=== PATIENT | female | born 1970 | race Caucasian/White ===

== ENCOUNTER 2024-06-13 10:25 | Emergency (ER) | payer BC ==
[~2024-06-13] VITALS: Ht 175.3 cm; Wt 97.5 kg
[2024-06-13 10:33] VITALS: PULSE 90; RESP 18; TEMP 98.4; O2SAT 100
[2024-06-13] MEDS ORDERED: SODIUM CHLORIDE 0.9% 1000ML 1,000 ML IV STA (11:26)
[2024-06-13 11:45] LABS: BASOPHILS # (AUTO) 0.1 (0.0-0.1); BASOPHILS % 0.5 % (0.0-1.0); EOSINOPHILS # (AUTO) 0.1 (0.0-0.4); EOSINOPHILS % 1.1 % (0.0-6.0); HEMATOCRIT 41.3 % (34.2-44.1); HEMOGLOBIN 13.1 g/dL (12.0-16.0); LYMPHOCYTES # (AUTO) 2.3 (1.0-3.2); LYMPHOCYTES % 18.1 % (18.0-39.1); MEAN CORPUSCULAR HEMOGLOBIN 28.4 pg (28-32); MEAN CORPUSCULAR HGB CONC 31.7 g/dL (31-35); MEAN CORPUSCULAR VOLUME 89.4 fL (81-99); MONOCYTES # (AUTO) 0.9 (0.2-0.8); MONOCYTES % 6.7 % (4.4-11.3); NEUTROPHILS # (AUTO) 9.3 (2.1-6.9); NEUTROPHILS % 73.1 % (38.7-80.0); PLATELET COUNT 460 x10e3/uL (140-360); RED BLOOD COUNT 4.62 x10e6/uL (3.6-5.1); RED CELL DISTRIBUTION WIDTH 12.5 % (11.7-14.4); WHITE BLOOD COUNT 12.73 x10e3/uL (4.8-10.8)
[2024-06-13 11:51] LABS: INR 0.98; PARTIAL THROMBOPLASTIN TIME 28.5 seconds (23.8-35.5); PROTHROMBIN TIME 13.5 seconds (11.9-14.5)
[2024-06-13 12:01] LABS: ALANINE AMINOTRANSFERASE 66 IU/L (0-55); ALBUMIN 3.3 g/dL (3.5-5.0); ALBUMIN/GLOBULIN RATIO 0.7 (0.8-2.0); ALKALINE PHOSPHATASE 116 IU/L (40-150); ANION GAP 17.9 mmol/L (8-16); BILIRUBIN,TOTAL 1.2 mg/dL (0.2-1.2); BLOOD UREA NITROGEN 13 mg/dL (7-26); BUN/CREATININE RATIO 17 (6-25); CALCIUM 9.4 mg/dL (8.4-10.2); CARBON DIOXIDE 25 mmol/L (22-29); CHLORIDE 94 mmol/L (98-107); CREATININE, SERUM 0.75 mg/dL (0.57-1.11); EST GLOMERULAR FILTRATION RATE 96 ML/MIN (>=60); GLUCOSE 88 mg/dL (74-118); LIPASE 52 U/L (8-78); SODIUM 134 mmol/L (136-145); TOTAL PROTEIN 8.2 g/dL (6.5-8.1)
[2024-06-13 12:05] LABS: POTASSIUM 2.9 mmol/L (3.5-5.1)
[2024-06-13] MEDS ORDERED: DICYCLOMINE HCL20 MG PO (13:03)
[2024-06-13] MEDS ORDERED: PANTOPRAZOLE SO40 MG PO (13:03)
[2024-06-13] MEDS: POTASSIUM CHLORIDE 20 MEQ TAB CR PO ONE (13:11)
== END 2024-06-13 13:33 | disposition home or self-care (01) ==
LOC: ER 10:37
DX: R10.13 Epigastric pain (principal); K80.20 Calculus of gallbladder without cholecystitis without obstruction; E87.6 Hypokalemia
CPT/HCPCS: 36415; 76705; 80053; 83690; 83735; 84702; 85025; 85610; 85730; 99284

== ENCOUNTER → 2024-08-03 | Day surgery (SDC) | payer BC ==
[2024-07-31 08:47] LABS: BASOPHILS # (AUTO) 0.1 (0.0-0.1); BASOPHILS % 0.9 % (0.0-1.0); EOSINOPHILS # (AUTO) 0.1 (0.0-0.4); EOSINOPHILS % 1.3 % (0.0-6.0); HEMATOCRIT 42.4 % (34.2-44.1); HEMOGLOBIN 13.2 g/dL (12.0-16.0); LYMPHOCYTES # (AUTO) 2.2 (1.0-3.2); LYMPHOCYTES % 31.8 % (18.0-39.1); MEAN CORPUSCULAR HEMOGLOBIN 28.1 pg (28-32); MEAN CORPUSCULAR HGB CONC 31.1 g/dL (31-35); MEAN CORPUSCULAR VOLUME 90.4 fL (81-99); MONOCYTES # (AUTO) 0.4 (0.2-0.8); MONOCYTES % 5.4 % (4.4-11.3); NEUTROPHILS # (AUTO) 4.2 (2.1-6.9); NEUTROPHILS % 60.2 % (38.7-80.0); PLATELET COUNT 376 x10e3/uL (140-360); RED BLOOD COUNT 4.69 x10e6/uL (3.6-5.1); RED CELL DISTRIBUTION WIDTH 12.8 % (11.7-14.4); WHITE BLOOD COUNT 6.91 x10e3/uL (4.8-10.8)
[2024-07-31 09:21] LABS: ALBUMIN 3.6 g/dL (3.5-5.0); ALBUMIN/GLOBULIN RATIO 0.9 (0.8-2.0); BILIRUBIN,TOTAL 1.1 mg/dL (0.2-1.2); CREATININE, SERUM 0.69 mg/dL (0.57-1.11); TOTAL PROTEIN 7.5 g/dL (6.5-8.1)
[~2024-08-03] MED LIST: ACETAMINOPHEN 1000 MG/100 ML 100 ML IV ONE; DEXAMETHASONE SOD PHOS INJ 4 MG/ML SDV ONE; DICYCLOMINE HCL20 MG PO; FENTANYL CITRATE/PF 100MCG/2 ML INJ ONE; FLORAJEN ACIDO1 EACH; GLYCOPYRROLATE INJ 0.2 MG/ML VIAL ONE; LIDOCAINE HCL 2% LOCAL INJ 5 ML SDV VIAL INJ ONE; METOCLOPRAMIDE HCL 10 MG/2ML VIAL ONE; MIDAZOLAM HCL 2 MG/2 ML VIAL ONE; ONDANSETRON HCL INJ 2MG/ML 2ML 2 MG/ML VIAL ONE; PANTOPRAZOLE SO40 MG PO; PROPOFOL IV EMULSION 10 MG/ML 20 ML VIAL ONE; ROCURONIUM BROMIDE 1 ML IV ONE; SUGAMMADEX SODIUM 200 MG/2 ML VIAL IV ONE
[2024-08-03] MEDS: LACTATED RINGER'S 1,000 ML ONE (09:22)
[2024-08-03 13:18] VITALS: TEMP 97.3
[2024-08-03 14:20] VITALS: BP 132/95; PULSE 83; RESP 16; O2SAT 97
== END | disposition home or self-care (01) ==
LOC: OR 09:03
PROVIDERS: ATTEND Surgery
DX: K80.10 Calculus of gallbladder with chronic cholecystitis without obstruction (principal); K76.0 Fatty (change of) liver, not elsewhere classified; K82.8 Other specified diseases of gallbladder; K21.9 Gastro-esophageal reflux disease without esophagitis; E66.01 Morbid (severe) obesity due to excess calories; Z01.810 Encounter for preprocedural cardiovascular examination; Z01.812 Encounter for preprocedural laboratory examination
CPT/HCPCS: 36415; 80053; 81025; 85025; 88304; 93005; C1766; J1100; J2003; J2250; J2405; J2765